=== PATIENT | female | born 1955 | race Caucasian/White ===

== ENCOUNTER 2016-10-04 02:45 | Emergency (ER) | payer OTHER ==
[2016-10-04] MEDS ORDERED: IBUPROFEN 800 MG TABLET ONE (03:06)
== END 2016-10-04 03:16 | disposition home or self-care (01) ==
LOC: ED 02:45
DX: B02.9 Zoster without complications (principal); Z85.3 Personal history of malignant neoplasm of breast; Z85.43 Personal history of malignant neoplasm of ovary; Z90.13 Acquired absence of bilateral breasts and nipples
CPT/HCPCS: 99283; 99282; A9270